=== PATIENT | female | born 1980 | race Caucasian/White ===

== ENCOUNTER 2024-04-17 17:37 | Emergency (ER) | payer MEDICAID ==
[~2024-04-17] VITALS: Ht 162.6 cm; Wt 75.3 kg
[2024-04-17 17:40] VITALS: BP 134/77; PULSE 80; RESP 20; TEMP 98.6; O2SAT 99
[2024-04-17 17:50] VITALS: O2SAT 99
[2024-04-17] MEDS: KETOROLAC 30 MG/ML VIAL IM ONE (18:52)
[2024-04-17] MEDS ORDERED: ACET500T99 PO (18:58)
[2024-04-17] MEDS ORDERED: NAPR-337 PO (18:58)
== END 2024-04-17 19:17 | disposition home or self-care (01) ==
LOC: MED 17:37
DX: M79.671 Pain in right foot (principal); Z79.899 Other long term (current) drug therapy; Z88.5 Allergy status to narcotic agent
CPT/HCPCS: 73630; 81025; 96372; 99283; J1885; Q0092